=== PATIENT | male | born 1995 | race Caucasian/White ===

== ENCOUNTER 2016-09-03 11:38 | Emergency (ER) | payer BC ==
[2016-09-03] MEDS ORDERED: LIDOCAINE HCL/PF 1% (10 MG/1 ML) - 2 ML AMP SUBCUT ONE ×2 (11:49→11:51)
[2016-09-03] MEDS ORDERED: SULFAMETHOXAZOLE/TRIMETHOPRIM 800/160 MG TABLET PO ONE (11:49)
[2016-09-03 11:55] VITALS: RESP 16; TEMP 97.8
--- NOTE | 2016-09-03 11:57 | PDOC ---
Skin Rash/Insect/Abscess HPI - General Chief Complaint: Integumentary Stated Complaint: abcess left jaw Date Seen by Provider: 09/03/16 Time Seen by Provider: 11:52 Source: POSITIVE: Patient Exam Limitations: POSITIVE: No limitations Nurse's Notes Reviewed & Considered: Yes - History of Present Illness Initial Comments: She comes in today with a chief complaint of abscess on his lower jaw. Patient has a area of draining fluctuance in his left inferior jaw in the area of the mid portion of his jaw. Spontaneously began to drain purulent material yesterday which he covered with a Band-Aid. Today he uncovered it had increased purulent discharge increasing erythema swelling and pain. Denies any nausea vomiting diarrhea, fever chills or sweats, hematuria dysuria, no chest pain, no shortness of breath, no headache. Have you received a tetanus shot in the past 10 years?: Yes Body Location Affected: REPORTS: Other (jaw) Timing: REPORTS: Abrupt Duration: >24 hours Severity: Moderate Quality: REPORTS: "Pain", Throbbing, Tenderness Identified Causes: REPORTS: Yes When Exposed: REPORTS: Unknown Exposure Time Where Exposed: REPORTS: Unknown Suspected Etiology: REPORTS: Other (Infected hair follicle) Similar Symptoms Previously: No Recent Care Received: REPORTS: Denies Any Prior Injuries Related to Current Complaint?: No - Patient Home Medications Home Medications: Home Medications NK [No Home Medications Reported] 10/25/14 - Patient Allergies Allergies/Adverse Reactions: Allergies Allergy/AdvReac Type Severity Reaction Status Date / Time Penicillins Allergy HIVES Verified 09/03/16 11:41 Past Medical History - heen HEENT History: Denies History Cardiovascular History: Denies History Respiratory History: Denies History Gastrointestinal History: Denies History Genitourinary History: Denies History Endocrine History: Denies History Musculoskeletal History: Denies History Neurological History: Denies History Blood Disorders: Denies History Psychiatric History: Denies History Cancer History: Denies History History of MDRO: No Alcohol Use: None Substance Use Type: None Previous Surgical History: No Significant Family History: No pertinent family hx ROS - Limitations ROS Limitations: No Limitations Constitution: REPORTS: Denies Symptoms Cardiovascular: REPORTS: Denies Cardiac Symptoms Respiratory: REPORTS: Denies Resp Symptoms Neurological: REPORTS: Denies Neuro Symptoms Gastrointestinal: REPORTS: Denies GI Symptoms Endocrine: REPORTS: Denies Symptoms Musculoskeletal: REPORTS: Denies MS Symptoms Genitourinary: REPORTS: Denies Symptoms Eyes: REPORTS: Denies Symptoms ENT: REPORTS: Other (Swelling lower jaw with draining abscess.) Skin: REPORTS: Other (Abscess lower jaw which is draining) Lympathic: REPORTS: Denies Lympathic Symptoms Immunologic: POSITIVE: Denies Symptoms Psychiatric: POSITIVE: Denies Psych Symptoms Skin Rash/Insect/Abscess Exam - General Appearance General Appearance: REPORTS: Alert, Cooperative, No Acute Distress, No Evidence of Trauma - Skin Skin: REPORTS: Warm, Dry, Normal Color, Abscess (Jaw), Fluctuant Skin Location: REPORTS: Face (Jaw) Skin Character: REPORTS: Other (Draining abscess) Skin Symptoms: REPORTS: Warmth, Tenderness, Swelling, Inflammation - Extremities Extremity: Non-Tender: (All Extremities), Normal ROM: (All Extremities), Normal Inspection: (All Extremities) - HEENT HEENT: POSITIVE: Head Inspection Nml, Eyes Inspection Nml, Ears Inspection Nml, Nose Inspection Nml, PERRL, EOMI - Neck Neck: REPORTS: Trachea Midline, No Swelling - Respiratory Respiratory: REPORTS: No Respiratory Distress - Abdomen Abdomen: Denies Tenderness: (All Quadrants) - Neurological / Psychological Neurological: REPORTS: Affect Apporpriate, Oriented X3 Procedures - Laceration/Wound Repair Did patient have a laceration repair: No - Incision and Drainage Local Anesthesia Used - Indicate Amt Used in Comment: Lidocaine 1%: Yes Blade Size: 11 I & D Procedure: gauze wick placed I&D Treatment: Purulent Drainage, Obtained Cultures, Gram Stains Obtained Skin Rash/Abscess Progress - Patient's Progress Pain Medication Addressed: POSITIVE: No Status: POSITIVE: Improved MDM / ED Course: After obtaining informed verbal consent patient had the area of his abscess infiltrated 1% lidocaine 11 blade was used to incise the skin and purulent discharge was obtained. A small iodoform wick placed and a bandage was applied. Patient received oral Bactrim and a prescription for Bactrim he is discharged in improved condition. Assessment: draining abscess. Patient Care Time - Estimated PCT Patient Care Time (In Minutes): 20 Vital Signs - Recent Vital Signs Vital Signs: Vital Signs (Last 8 hours) Temp Pulse Resp BP Pulse Ox 09/03/16 11:42 97.8 F 94 16 119/82 96 - VS Reviewed Vital Signs Reviewed: Yes Discharge Clinical Impression: Abscess Discharge Disposition: Discharged to Home Condition: Good Patient Instructions Given at Discharge: Abscess Incision and Drainage (ED)
== END 2016-09-03 12:16 | disposition home or self-care (01) ==
LOC: ER 11:38
DX: L02.01 Cutaneous abscess of face (principal)
CPT/HCPCS: 10060; 87070; 87077; 87186; 87205; 99282; J2001

== ENCOUNTER 2017-01-28 21:41 | Emergency (ER) | payer BC ==
[2017-01-28 21:56] VITALS: RESP 16; TEMP 100.3
--- NOTE | 2017-01-28 22:10 | PDOC ---
Skin Rash/Insect/Abscess HPI - General Chief Complaint: Integumentary Stated Complaint: SPIDER BITE Date Seen by Provider: 01/28/17 Time Seen by Provider: 22:05 Source: POSITIVE: Patient Exam Limitations: POSITIVE: No limitations Nurse's Notes Reviewed & Considered: Yes - History of Present Illness Initial Comments: This is a 21-year-old male who presents to the emergency department with a history of having an insect bite which he first noticed about 3 or 4 days ago. He states that it initially started quite small, but over the last 3 days the area of redness has continued to expand and has become more painful. He has noted some subjective fevers and chills, he has also had some intermittent dizziness and lightheadedness as well as nausea. Have you received a tetanus shot in the past 10 years?: Yes - Patient Home Medications Home Medications: Home Medications NK [No Home Medications Reported] 10/25/14 - Patient Allergies Allergies/Adverse Reactions: Allergies Allergy/AdvReac Type Severity Reaction Status Date / Time Penicillins Allergy HIVES Verified 01/28/17 21:47 Past Medical History - heen HEENT History: Denies History Cardiovascular History: Denies History Respiratory History: Denies History Gastrointestinal History: Denies History Genitourinary History: Denies History Endocrine History: Denies History Musculoskeletal History: Denies History Prosthesis or Implant: No Neurological History: Denies History Blood Disorders: Denies History Psychiatric History: Denies History History of Sexually Transmitted Diseases: No Male Reproductive History: Denies History Cancer History: Denies History In Past Year Been Physically Harmed or Verbally Threatened: No History of MDRO: No History of Other Communicable Diseases: No Tobacco Use: Current Every Day Smoker Alcohol Use: None Substance Use Type: None Previous Surgical History: No Significant Family History: No pertinent family hx Past Medical History Reviewed: Reviewed - No Changes ROS - Limitations ROS Limitations: No Limitations Constitution: REPORTS: Chills, Fever Cardiovascular: DENIES: Heart Racing Neurological: REPORTS: Dizziness Gastrointestinal: REPORTS: Nausea. DENIES: Vomitting Musculoskeletal: REPORTS: Muscle Aches Skin: REPORTS: Skin Lesions Skin Rash/Insect/Abscess Exam - General Appearance General Appearance: REPORTS: Alert, Cooperative, Moderate Distress - Skin Skin: REPORTS: Warm, Dry, Normal Color, Tender Indurated Area, Wtih Erythema, Erythema Skin Symptoms: REPORTS: Warmth, Tenderness, Swelling, Induration, Well Defined Border - HEENT HEENT: NEGATIVE: Scleral Icterus - Respiratory Respiratory: REPORTS: No Respiratory Distress, Breath Sounds Normal - Cardiovascular Cardiovascular: REPORTS: Regular Rate and Rhythm, Heart Sounds Normal - Neurological / Psychological Neurological: REPORTS: Oriented X3, Motor Normal Skin Rash/Abscess Progress - Results Reviewed by me Labs Normal Except for:: Abnormal Lab Results: Entire Visit 01/28/17 Range/Units 22:15 WBC 14.04 H (4.8-10.8) 10^3/uL RDW Std Deviation 38.4 L (39-50) fL [place] # (Auto) 1.48 H (0.3-0.8) 10*3/UL Potassium 3.7 L (3.8-5.2) meq/L Lab Results Reviewed: Yes - Patient's Progress Pain Medication Addressed: POSITIVE: Yes School/Work Release Addressed: POSITIVE: Yes Re-Examine Time:: 23:46 Re-Examine Comment: The patient's pain is improved, is feeling better and he wants to go home. Status: POSITIVE: Improved MDM / ED Course: Emergency room course: After initial evaluation, an IV was started. Blood was drawn. He was given 2 g Rocephin IV, and 100 mg doxycycline by mouth. When the labs were reviewed, they're discussed with the patient and his mother. Patient tolerated the Rocephin without any trouble; his pain is improved after the Toradol. I do believe this is infected spider bite, he'll be discharged home with his mother with a prescription for Toradol tablets as well as doxycycline. He should follow-up with his primary care provider in 2 days if the redness is not improving return immediately if redness gets worse for fever develops. - Consult Counseled: POSITIVE: Patient, Family, RE: Lab Results, RE: DX, RE: Need for F/U Patient Care Time - Estimated PCT Patient Care Time (In Minutes): 15 Vital Signs - Recent Vital Signs Vital Signs: Vital Signs (Last 8 hours) Temp Pulse Resp BP Pulse Ox 01/28/17 21:41 100.3 F H 103 H 16 106/68 95 Discharge Clinical Impression: Cellulitis, Insect bite - wound Discharge Disposition: Discharged to Home Condition: Good Patient Instructions Given at Discharge: Cellulitis (ED), Insect Bite or Sting (ED)
[2017-01-28] MEDS ORDERED: NORMAL SALINE 10 ML SYRINGE FLUSH IVP PRN (22:11)
[2017-01-28] MEDS: Sodium Chloride 0.9% 1,000 ML PRIMARY IV ONE (22:15)
[2017-01-28] MEDS: KETOROLAC 15 MG/1 ML VIAL IVP ONE (22:20)
[2017-01-28 22:31] LABS: BLOOD UREA NITROGEN 14 mg/dL (7-22); BUN/CREATININE RATIO 15.55 (6-20); CALCIUM 9.1 mg/dL (8.7-10.7); EST GLOMERULAR FILTRATION > 60 (>60 ml/min/1.73m(2))
[2017-01-28 22:40] LABS: BASOPHILS # (AUTO) 0.06 10*3/UL; BASOPHILS % (AUTO) 0.4 % (0-1); EOSINOPHILS # (AUTO) 0.09 10*3/UL; EOSINOPHILS % (AUTO) 0.6 % (0-8); HEMATOCRIT 44.4 % (42.0-52.0); HEMOGLOBIN 15.8 g/dL (14.0-18.0); LYMPHOCYTES # (AUTO) 1.69 10*3/uL; MEAN CORPUSCULAR HEMOGLOBIN 30.7 PG (27-31); MEAN CORPUSCULAR HGB CONC 35.6 g/dL (33-37); MEAN CORPUSCULAR VOLUME 86.2 FL (80-90); MEAN PLATELET VOLUME 11.4 FL (7.4-12.2); MONOCYTES # (AUTO) 1.48 10*3/UL (0.3-0.8); MONOCYTES % (AUTO) 10.5 % (5-15); NEUTROPHILS % (AUTO) 76.4 % (50-80); PLATELET MORPHOLOGY COMMENT NORMAL MORPHOLOGY (NORM); RBC MORPHOLOGY COMMENT NORMAL MORPHOLOGY (NORM); RED BLOOD COUNT 5.15 10^6/uL (4.70-6.10); WBC MORPHOLOGY COMMENT NORMAL MORPHOLOGY (NORM)
[2017-01-28] MEDS: DOXYCYCLINE HYCLATE 100 MG CAPSULE PO ONE (22:42)
[2017-01-28] MEDS: cefTRIAXone Inj 2 GM in Sodium Chloride 0.9% 100 ML IV ONE (22:43)
== END 2017-01-29 00:02 | disposition home or self-care (01) ==
LOC: ER 21:41
DX: L03.115 Cellulitis of right lower limb (principal); T63.301A Toxic effect of unspecified spider venom, accidental (unintentional), initial encounter; R11.0 Nausea; R42 Dizziness and giddiness
CPT/HCPCS: 80048; 85025; 96361; 96365; 96375; 99282; 99283; J0696; J1885; J7030; J7050